=== PATIENT | male | born 1995 | race Caucasian/White ===

== ENCOUNTER 2021-10-08 17:08 | Emergency (ER) | payer OTHER ==
[2021-10-08 18:01] VITALS: BP 119/67; PULSE 58; TEMP 98; BMI 23.0
[2021-10-08] MEDS ORDERED: DIPHTH,PERTUSS(ACELL),TET 0.5 ML DISP.SYRIN IM ONE (19:48)
[2021-10-10 14:17] LABS: SARS-CoV-2 NAA Not Detected (Not Detected)
== END 2021-10-08 20:06 | disposition home or self-care (01) ==
LOC: FER 17:08
PROC: 0HQFXZZ Repair Right Hand Skin, External Approach (ICD-10-PCS; principal; 2021-10-08)
DX: S61.011A Laceration without foreign body of right thumb without damage to nail, initial encounter (principal); W25.XXXA Contact with sharp glass, initial encounter
CPT/HCPCS: 99283-25; C9803; U0003; U0005